=== PATIENT | male | born 1995 | race Caucasian/White ===

== ENCOUNTER 2025-09-18 20:26 | Emergency (ER) | payer SELFPAY ==
[2025-09-18 20:26] VITALS: BP 112/59; PULSE 88; RESP 20; TEMP 36.1; O2SAT 97
[2025-09-18 20:54] VITALS: PULSE 84; O2SAT 94
[2025-09-18 20:58] LABS: BE (Venous) 3 mmol/L (-2-3); HCO3 (Venous) 29 mmol/L (23-28); O2 Sat (Venous) 77 %; TCO2 (Venous) 25 mmol/L (24-29); pCO2 (Venous) 50 mmHg (41-51); pO2 (Venous) 46 mmHg
[2025-09-18 21:00] LABS: Abs Immature Grans 0.04 10^3/uL (0.0-0.06); HCT 43.0 % (40.0-50.0); HGB 14.7 g/dL (13.5-17.5); Immature Grans % 0.6 %; MCH 31.1 pg (27.0-33.0); MCHC 34.2 % (32.0-36.0); MCV 91 fL (80-95); MPV 10.1 fL (8.0-11.0); Platelet Count 272 10^3/uL (130-400); RBC 4.73 10^6/uL (4.36-5.78); RDW 11.7 % (11.8-14.1); RDW-SD 39.5 fL; WBC 7.17 10^3/uL (4.4-10.8)
[2025-09-18 21:14] LABS: Lipase 54 U/L (<53)
[2025-09-18 21:15] LABS: Magnesium 2.4 mg/dL (1.6-2.6)
[2025-09-18 21:17] LABS: ALT 179 U/L (10-49); AST 98 U/L (<34); Albumin 4.9 g/dL (3.2-5.0); Alkaline Phosphatase 77 U/L (46-116); Anion Gap 10 mmol/L (3-11); BUN 5 mg/dL (9-23); Bilirubin, Total 0.30 mg/dL (0.2-1.2); CO2 28.0 mmol/L (20.0-31.0); Calcium 9.0 mg/dL (8.3-10.6); Chloride 104 mmol/L (98-107); Glucose 100 mg/dL (74-106); Potassium 3.8 mmol/L (3.5-5.1); Sodium 142 mmol/L (136-145); Total Protein 7.7 g/dL (5.7-8.2)
[2025-09-18 21:23] VITALS: PULSE 93; RESP 25
[2025-09-18 21:30] VITALS: PULSE 96; PULSE 97; RESP 15; O2SAT 94
[2025-09-18 21:43] LABS: Glucose Negative (Negative)
[2025-09-18] MEDS: Nicotine 4 MG GUM CH (22:12)
[2025-09-18 22:52] LABS: Acetaminophen < 2 ug/mL (10-20); Salicylate < 3.0 mg/dL (<30.0)
--- NOTE | 2025-09-18 23:16 | W.ED.GENAD ---
Discharge Plan Disposition Patient Disposition: Home Discharge Details Clinical Impression: Acute alcohol intoxication, CHI (closed head injury) Primary Care Provider: Unknown,Unknown ED Provider: Nicolas Webb Home Meds and New Rx's Prescriptions: No Action fluticasone propionate 16 GM spray,suspension 50 mcg NS BID Qty: 1 temazepam 15 MG capsule 15 mg PO HS PRNQty: 30 bupropion HCl [Wellbutrin XL] 150 MG tablet extended release 24 hr 150 mg PO DAILY Qty: 90 4RF Discharge Instructions Instructions: Alcohol Use Disorder (DC), Alcohol Intoxication ED, Minor Head Injury, Adult ED Additional Instructions: You were seen in the emergency department for acute alcohol intoxication. You have been discharged to the care of your friend who presented to the emergency department to take care of you. It was recommended you undergo a head CT however you refused. Please follow-up with your primary care provider regarding your visit to the emergency department today. Be sure to discuss results of all test performed here today to include radiology, and laboratory testing as well as results for any pending cultures. Should your symptoms worsen, or if you develop new concerning symptoms, please return immediately emergency department for further evaluation. Stand Alone Forms: Portal Information HPI General Date/Time Provider Initiated Documentation: 09/18/25 20:30. HPI Narrative: MDM/Narrative: 40-year-old male presents for evaluation of acute alcohol intoxication. Physical exam shows no evidence of acute alcohol withdrawal or other toxidromes concerning for coingestions. Patient minor abrasion over the frontal forehead, reported multiple low impact close head injuries. Will obtain screening labs including alcohol level, urine tox, and assess for metabolic derangement. Given family's concern for multiple episodes of head trauma, will obtain head CT although clinical suspicion for acute intracranial injury is low. ED course: 2323 The patient is requesting discharge and emergency department at this time. He is also refusing CT head imaging. At this time the patient's friend Adama has arrived, and is willing to care for the patient, following discharge. Given the several hours of observation, improving clinical status, patient will need discharge seen in the care of his friend appointment in person. He was encouraged to return emergency department as any new or worsening symptoms. Clinical impression: Acute alcohol intoxication Closed head injury Disposition: Discharge HPI: 30-year-old male past medical history of substance abuse and alcoholism, presents for evaluation acute alcohol intoxication. He reports drinking a large amount of alcohol earlier today. As per EMS and family who provide most of the history, patient was found to be intoxicated at home, and belligerent. They noted that he fell forward into a wall and broke the drywall with his forehead, and also stumbled backwards and struck the back of his head on a glass door which remained intact. Patient not lose consciousness either time. They deny any associated vomiting or any focal neurologic deficits. Patient is unsure why he is in the emergency department and notes that he did not take any other substances besides alcohol tonight. ROS: Negative besides as mentioned above Exam: Gen: A&O NAD, intoxicated HEENT: Slight erythema over the forehead and without bony tenderness or step-off, EOMI, not icteric. External ears normal. No rhinorrhea. Moist mucous membranes. Neck: Supple, full range of motion, no observable masses, No meningeal sign. Lungs: No Respiratory distress. CV: RRR, no edema. Abdomen: Soft, nondistended, No rebound tenderness. MSK: No joint swelling, no redness. Skin: No rashes, petechiae, lesions. Normal color per patient. Neuro: Slurred speech, poor coordination. Psych: Appropriate for situation. Labs: Laboratory Tests Range/Units 09/18/25 09/18/25 20:51 21:25 WBC (4.4-10.8) 10^3/uL 7.17 RBC (4.36-5.78) 10^6/uL 4.73 Hgb (13.5-17.5) g/dL 14.7 Hct (40.0-50.0) % 43.0 MCV (80-95) fL 91 MCH (27.0-33.0) pg 31.1 MCHC (32.0-36.0) % 34.2 RDW (11.8-14.1) % 11.7 L Plt Count (130-400) 10^3/uL 272 MPV (8.0-11.0) fL 10.1 Immature Gran % % 0.6 Neutrophils % % 63.7 Lymphocytes % % 21.9 Monocytes % % 10.5 Eosinophils % % 2.2 Basophils % % 1.1 Nucleated RBC % (0.0-0.3) % 0.0 Absolute Neutrophils (1.2-6.7) 10^3/uL 4.57 Absolute Lymphocytes (1.2-3.4) 10^3/uL 1.57 Absolute Monocytes (0.1-0.8) 10^3/uL 0.75 Absolute Eosinophils (0.0-0.7) 10^3/uL 0.16 Absolute Basophils (0.0-0.2) 10^3/uL 0.08 VBG pH (7.31-7.41) 7.37 VBG pCO2 (41-51) mmHg 50 VBG pO2 mmHg 46 VBG HCO3 (23-28) mmol/L 29 H VBG Total CO2 (24-29) mmol/L 25 VBG O2 Saturation % 77 VBG Base Excess (-2-3) mmol/L 3 VBG Lactate (<or=2.0) mmol/L 1.7 Sodium (136-145) mmol/L 142 Potassium (3.5-5.1) mmol/L 3.8 Chloride (98-107) mmol/L 104 Carbon Dioxide (20.0-31.0) mmol/L 28.0 Anion Gap (3-11) mmol/L 10 BUN (9-23) mg/dL 5 L Creatinine (0.73-1.18) mg/dL 0.74 Est GFR (CKD-EPI 2020) (mL/min/1.73m2) 124.55 Glucose (74-106) mg/dL 100 Calcium (8.3-10.6) mg/dL 9.0 Magnesium (1.6-2.6) mg/dL 2.4 Total Bilirubin (0.2-1.2) mg/dL 0.30 AST (<34) U/L 98 H ALT (10-49) U/L 179 H Alkaline Phosphatase (46-116) U/L 77 Total Protein (5.7-8.2) g/dL 7.7 Albumin (3.2-5.0) g/dL 4.9 Lipase (<53) U/L 54 H Urine Color (Yellow) Yellow Urine Clarity (Clear) Clear Urine pH (5-8) 6.0 Ur Specific [place] (1.005-1.025) <= 1.005 Urine Protein (Neg-Trace) mg/dL Negative Urine Ketones (Negative) mg/dL Negative Urine Blood (Negative) Negative Urine Nitrite (Negative) Negative Urine Bilirubin (Negative) Negative Urine Urobilinogen (Up to 0.2) mg/dL 0.2 Ur Leukocyte Esterase (Negative) Negative Urine Glucose (Negative) mg/dL Negative Salicylates (<30.0) mg/dL < 3.0 Urine Opiates Screen (Negative) Negative Urine Methadone Screen (Negative) Negative Acetaminophen (10-20) ug/mL < 2 L Ur Barbiturates Screen (Negative) Negative Ur Tricyclics Screen (Negative) Negative Ur Amphetamines Screen (Negative) Negative U Benzodiazepines Scrn (Negative) Negative Urine Cocaine Screen (Negative) Negative Ethyl Alcohol (<3) mg/dL 391.9 H Related Data Home Medications ?Medication ?Instructions ?Recorded ?Confirmed fluticasone propionate 50 50 mcg NS BID #1 spray 05/16/15 09/18/25 mcg/actuation nasal spray,suspension temazepam 15 mg capsule 15 mg PO HS PRN #30 tab-caps 04/13/17 09/18/25 bupropion HCl 150 mg 24 hr tablet, 150 mg PO DAILY #90 tab-caps 07/28/17 09/18/25 extended release (Wellbutrin XL) Previous Rx's ?Medication ?Instructions ?Recorded bupropion HCl 150 mg 24 hr tablet, 150 mg PO DAILY #90 tab-caps 07/28/17 extended release (Wellbutrin XL) Allergies Allergy/AdvReac Type Severity Reaction Status Date / Time pollen extracts Allergy Mild runny Unverified 09/18/25 20:40 nose,itchy eyes General Stated Complaint: ETOHWithdr GUS: 3 Course Vital Signs Vital signs: Vital Signs Temperature 36.1 C L 09/18/25 20: Pulse 88 09/18/25 20: Respiratory Rate 20 09/18/25 20:26 Blood Pressure 112/59 L 09/18/25 20:26 Pulse Oximetry 97 09/18/25 20:26 Temperature 36.1 C L 09/18/25 20:26 Temperature Source Tympanic 09/18/25 20:26 Pulse 96 H 12/01/25 21:30 Pulse 97 H 09/18/25 21:30 Respiratory Rate 15 09/18/25 21:30 Respiratory Pattern Normal 09/18/25 21:32 Blood Pressure 112/59 L 09/18/25 20:26 Blood Pressure Position Supine 09/18/25 20:26 Pulse Oximetry 94 09/18/25 21:30 Oxygen Delivery Method Room Air 09/18/25 20:26 Oxygen Flow Rate 0 09/18/25 20:26 Lab/Test Results Lab/Test Results: Laboratory Tests Range/Units 09/18/25 09/18/25 20:51 21:25 WBC (4.4-10.8) 10^3/uL 7.17 RBC (4.36-5.78) 10^6/uL 4.73 Hgb (13.5-17.5) g/dL 14.7 Hct (40.0-50.0) % 43.0 MCV (80-95) fL 91 MCH (27.0-33.0) pg 31.1 MCHC (32.0-36.0) % 34.2 RDW (11.8-14.1) % 11.7 L Plt Count (130-400) 10^3/uL 272 MPV (8.0-11.0) fL 10.1 Immature Gran % % 0.6 Neutrophils % % 63.7 Lymphocytes % % 21.9 Monocytes % % 10.5 Eosinophils % % 2.2 Basophils % % 1.1 Nucleated RBC % (0.0-0.3) % 0.0 Absolute Neutrophils (1.2-6.7) 10^3/uL 4.57 Absolute Lymphocytes (1.2-3.4) 10^3/uL 1.57 Absolute Monocytes (0.1-0.8) 10^3/uL 0.75 Absolute Eosinophils (0.0-0.7) 10^3/uL 0.16 Absolute Basophils (0.0-0.2) 10^3/uL 0.08 VBG pH (7.31-7.41) 7.37 VBG pCO2 (41-51) mmHg 50 VBG pO2 mmHg 46 VBG HCO3 (23-28) mmol/L 29 H VBG Total CO2 (24-29) mmol/L 25 VBG O2 Saturation % 77 VBG Base Excess (-2-3) mmol/L 3 VBG Lactate (<or=2.0) mmol/L 1.7 Sodium (136-145) mmol/L 142 Potassium (3.5-5.1) mmol/L 3.8 Chloride (98-107) mmol/L 104 Carbon Dioxide (20.0-31.0) mmol/L 28.0 Anion Gap (3-11) mmol/L 10 BUN (9-23) mg/dL 5 L Creatinine (0.73-1.18) mg/dL 0.74 Est GFR (CKD-EPI 2020) (mL/min/1.73m2) 124.55 Glucose (74-106) mg/dL 100 Calcium (8.3-10.6) mg/dL 9.0 Magnesium (1.6-2.6) mg/dL 2.4 Total Bilirubin (0.2-1.2) mg/dL 0.30 AST (<34) U/L 98 H ALT (10-49) U/L 179 H Alkaline Phosphatase (46-116) U/L 77 Total Protein (5.7-8.2) g/dL 7.7 Albumin (3.2-5.0) g/dL 4.9 Lipase (<53) U/L 54 H Urine Color (Yellow) Yellow Urine Clarity (Clear) Clear Urine pH (5-8) 6.0 Ur Specific [place] (1.005-1.025) <= 1.005 Urine Protein (Neg-Trace) mg/dL Negative Urine Ketones (Negative) mg/dL Negative Urine Blood (Negative) Negative Urine Nitrite (Negative) Negative Urine Bilirubin (Negative) Negative Urine Urobilinogen (Up to 0.2) mg/dL 0.2 Ur Leukocyte Esterase (Negative) Negative Urine Glucose (Negative) mg/dL Negative Salicylates (<30.0) mg/dL < 3.0 Urine Opiates Screen (Negative) Negative Urine Methadone Screen (Negative) Negative Acetaminophen (10-20) ug/mL < 2 L Ur Barbiturates Screen (Negative) Negative Ur Tricyclics Screen (Negative) Negative Ur Amphetamines Screen (Negative) Negative U Benzodiazepines Scrn (Negative) Negative Urine Cocaine Screen (Negative) Negative Ethyl Alcohol (<3) mg/dL 391.9 H PFSH All Active Problems (Updated 09/18/25 @ 23:18 by Nicolas Webb MD) CHI (closed head injury) (Acute) Acute alcohol intoxication (Acute) Family History Mother No problems noted. Father No problems noted. Sister No problems noted. Grandfather Diabetes Hyperlipidemia Neoplasm LUNG AND BRAIN Asthma Grandfather Diabetes Heart disease Grandmother Leukemia Grandmother No problems noted. Social History Smoking/Tobacco Use Status: Former Tobacco Use Smoking risk assessment performed?: Yes Alcohol Intake: current Alcohol Intake frequency: 3 or more drinks per day Alcohol type: beer and hard liquor Drug use: Current Sobriety Substance use type: crack/cocaine Details: last used cocaine about 11 days ago 09/18/25 MG Do you feel safe at home: Yes Do you feel safe in your relationship?: Yes PAWSS Have you Been Recently Intoxicated or Drunk Within the Last 30 days?: Yes Have you Ever Experienced Previous Episodes of Alcohol Withdrawal?: Yes Have you ever Experienced Withdrawal Seizures?: Yes Have you ever Experienced Delirium Tremens(DT)s?: Yes Have you ever undergone Alcohol Rehabilitation Treatment (i.e, inpt ot outpatient treatment programs)?: Yes Have you ever Experienced Blackouts?: Yes Have you ever Combined Alcohol with other Downers within the last 90 days?: No Have you ever Combined Alcohol with any other Substance of Abuse during the last 90 days?: Yes Positive Blood Alcohol level on Presentation? [PCS.BAL]: Yes Evidence of Increased Autonomic Activity (i.e. HR>120, tremor, sweating, agitation, nausea)?: No Result: 9
--- NOTE | 2025-09-19 07:46 | NUR.NOTE ---
Accessed Pt chart to cancel a CT scan due to Pt refusing to have it done. VALERIE Hernández was inquiring.
[2025-09-21 16:56] LABS: Cannabinoids THC Negative (Negative)
== END 2025-09-19 06:07 | disposition home or self-care (01) ==
LOC: ER 09-19 06:18
PROVIDERS: Emergency Provider General Practice
DX: F10.120 Alcohol abuse with intoxication, uncomplicated (principal); S09.8XXA Other specified injuries of head, initial encounter; Z87.891 Personal history of nicotine dependence; Y90.8 Blood alcohol level of 240 mg/100 ml or more; W22.01XA Walked into wall, initial encounter; Y93.01 Activity, walking, marching and hiking; Z53.29 Procedure and treatment not carried out because of patient's decision for other reasons
CPT/HCPCS: 36415; 80053; 80307; 82805; 83690; 99283; 80320; 80329; 81003; 83605; 83735; 85025

== ENCOUNTER 2025-09-21 16:24 | Emergency (ER) | payer SELFPAY ==
[2025-09-21] VITALS (9 sets, daily range): BP systolic 102–173; BP diastolic 59–97; PULSE 98–112; RESP 15–27; TEMP 36.8; O2SAT 95–99
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
[2025-09-21] MEDS: Normal Saline 500 ML 1000 ML IV (17:17)
[2025-09-21] MEDS: Nicotine 21 MG/24 HR PATCH (17:18)
[2025-09-21] MEDS: Normal Saline - Diluent 50 ML VIAL IJ (17:31)
[2025-09-21] MEDS: Omnipaque 350 MG/ML 100 ML BTL IJ (17:31)
[2025-09-21] MEDS: Normal Saline Flush 10 ML SYR IVP (17:32)
[2025-09-21 17:33] LABS: Abs Immature Grans 0.05 10^3/uL (0.0-0.06); HCT 43.8 % (40.0-50.0); HGB 14.9 g/dL (13.5-17.5); Immature Grans % 0.5 %; MCH 30.7 pg (27.0-33.0); MCHC 34.0 % (32.0-36.0); MCV 90 fL (80-95); MPV 10.2 fL (8.0-11.0); Platelet Count 320 10^3/uL (130-400); RBC 4.86 10^6/uL (4.36-5.78); RDW 12.1 % (11.8-14.1); RDW-SD 40.1 fL; WBC 9.46 10^3/uL (4.4-10.8)
[2025-09-21 17:39] LABS: INR 1.0 (0.9-1.1); PTT Activated 24.7 sec (20.6-30.2); Prothrombin Time 10.4 sec (9.1-11.1)
[2025-09-21 17:49] LABS: Lipase 50 U/L (<53)
[2025-09-21 17:51] LABS: ALT 147 U/L (10-49); AST 89 U/L (<34); Albumin 4.8 g/dL (3.2-5.0); Alkaline Phosphatase 90 U/L (46-116); Anion Gap 14.1 mmol/L (3-11); BUN 10 mg/dL (9-23); Bilirubin, Total 0.30 mg/dL (0.2-1.2); CO2 27.9 mmol/L (20.0-31.0); Calcium 9.0 mg/dL (8.3-10.6); Chloride 101 mmol/L (98-107); Glucose 128 mg/dL (74-106); Potassium 3.5 mmol/L (3.5-5.1); Sodium 143 mmol/L (136-145); Total Protein 7.7 g/dL (5.7-8.2)
[2025-09-21 17:54] LABS: Troponin I < 3 ng/L (<54)
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
--- NOTE | 2025-09-21 18:28 | NUR.NOTE ---
Nursing Note: Went to pull pt IV, pt already pulled it.
== END 2025-09-21 18:32 | disposition left against medical advice (07) ==
LOC: ER 18:30
PROVIDERS: Emergency Provider Physician Assistant
DX: F10.929 Alcohol use, unspecified with intoxication, unspecified (principal); R51.9 Headache, unspecified; M54.9 Dorsalgia, unspecified; V48.0XXA Car driver injured in noncollision transport accident in nontraffic accident, initial encounter
CPT/HCPCS: 99284; 99285; 36415; 74177; 80053; 83690; 93005; 96360; 70450; 71260; 72125; 80320; 83605; 84484; 85025; 85610; 85730; 93010; J3490